=== PATIENT | male | born 1935 | race Caucasian/White ===

== ENCOUNTER 2019-04-13 13:45 | Inpatient (IN) | payer MEDICAID, MEDICARE, OTHER ==
[2019-04-13 14:12] LABS: CHLORIDE,CL 103 mmol/L (98-107); SODIUM,NA 142 mmol/L (136-145)
--- NOTE | 2019-04-13 14:37 | EDM.PDOC ---
ED HPI GENERAL MEDICAL PROBLEM - General Chief Complaint: General Stated Complaint: Stroke code Time Seen by Provider: 04/13/19 13:46 Source of Information: Reports: Patient, Family, RN History Limitations: Reports: Other (Fluids speech right-sided weakness) - History of Present Illness INITIAL COMMENTS - FREE TEXT/NARRATIVE: This is an 83-year-old male left-hand dominant who was transferred to the ER from the [facility] secondary to slow speech right-sided weakness at this time we went ahead and worked him up for stroke patient does have previous history of stroke. - Related Data Allergies Allergy/AdvReac Type Severity Reaction Status Date / Time tramadol HCl [From Ultram] Allergy Confusion Verified 02/25/18 00:28 Home Meds: Home Meds Acetaminophen [Tylenol] 650 mg PO Q4H PRN 06/12/14 [History] Atenolol 25 mg PO DAILY@1800 06/12/14 [History] Dextran 70/Hypromellose [Artificial Tears] 2 drop EYEBOTH DAILY PRN 06/12/14 [ History] Donepezil HCl [Aricept] 10 mg PO DAILY 06/12/14 [History] Isosorbide Mononitrate [Imdur] 60 mg PO DAILY 06/12/14 [History] Sertraline [Zoloft] 100 mg PO DAILY 06/12/14 [History] Acetaminophen [Tylenol Arthritis] 650 mg PO TID@04,12,18 02/25/18 [History] Levothyroxine Sodium [Synthroid] 25 mcg PO 0800 02/25/18 [History] Memantine HCl [Namenda] 5 mg PO BID 02/25/18 [History] Menthol/Methyl Salicylate [Analgesic [place]] 1 applic TOP BID 02/25/18 [History] Triamcinolone Acetonide [Triamcinolone Acetonide 0.1% Crm] 1 applic TOP ASDIRECTED PRN 02/25/18 [History] Bisacodyl 5 - 10 mg PO DAILY PRN 04/13/19 [History] Menthol [Beng[place]] 1 applic TP ASDIRECTED PRN 04/13/19 [History] Methyl Salicylate/Menthol [Muscle Rub] 85 gm TP DAILY@1800 04/13/19 [History] Methyl Salicylate/Menthol [Salonpas Patch] 1 each TP DAILY@0600 04/13/19 [ History] Aspirin [Halfprin] 81 mg PO DAILY #100 tab.ec 04/14/19 [Rx] Past Medical History Cardiovascular History: Reports: Heart Failure, High Cholesterol, Hypertension Respiratory History: Reports: COPD, SOB Gastrointestinal History: Reports: Chronic Diarrhea, Other (See Below) ( dysphagia) Genitourinary History: Reports: BPH, Urinary Incontinence, UTI, Recurrent, Other (See Below) (hematuria) Musculoskeletal History: Reports: Back Pain, Chronic, Osteoarthritis, Other ( See Below) (weakness, falls, difficulty ambulating, impingement syndrome right shoulder) Psychiatric History: Reports: Dementia, Depression - History Comment History Comment: History obtained by reviewing paperwork included in packet from [place] home. Social & Family History - Living Situation & Occupation Living situation: Reports: Extended Care Facility ED ROS GENERAL - Review of Systems Review Of Systems: See Below Constitutional: Reports: No Symptoms HEENT: Reports: No Symptoms Respiratory: Reports: No Symptoms Endocrine: Reports: No Symptoms GI/Abdominal: Reports: Abdominal Pain, Nausea : Reports: No Symptoms Musculoskeletal: Reports: No Symptoms Skin: Reports: No Symptoms Neurological: Reports: Headache Psychiatric: Reports: No Symptoms Hematologic/Lymphatic: Reports: No Symptoms ED EXAM, GENERAL - Physical Exam Exam: See Below Exam Limited By: No Limitations General Appearance: Alert, WD/WN, No Apparent Distress Ears: Normal External Exam, Normal Canal, Hearing Grossly Normal, Normal TMs Ear Exam: Bilateral Ear: Auricle Normal, Canal Normal, TM normal Nose: Normal Inspection, Normal Mucosa, No Blood Throat/Mouth: Normal Inspection, Normal Lips, Normal Teeth, Normal Gums, Normal Oropharynx, Normal Voice, No Airway Compromise Head: Atraumatic, Normocephalic Neck: Normal Inspection, Supple, Non-Tender, Full Range of Motion Respiratory/Chest: No Respiratory Distress, Lungs Clear, Normal Breath Sounds, No Accessory Muscle Use, Chest Non-Tender Cardiovascular: Normal Peripheral Pulses, Regular Rate, Rhythm, No Edema, No Gallop, No JVD, No Murmur, No Rub GI/Abdominal: Normal Bowel Sounds, Soft, Non-Tender, No Organomegaly, No Distention, No Abnormal Bruit, No Mass (Male) Exam: Deferred Extremities: Normal Inspection, Normal Range of Motion, Non-Tender, Normal Capillary Refill, No Pedal Edema Neurological: Alert, Oriented, CN II-XII Intact, Normal Cognition, Normal Gait, Normal Reflexes, No Motor/Sensory Deficits Psychiatric: Normal Affect, Normal Mood Skin Exam: Warm, Dry, Intact, Normal Color, No Rash Lymphatic: No Adenopathy Course - Vital Signs Last Recorded V/S: Last Vital Signs Temp 97.3 F 04/14/19 11:57 Pulse 64 04/14/19 11:57 Resp 19 04/14/19 08:00 BP 125/75 04/14/19 11:57 Pulse Ox 97 04/14/19 11:57 - Orders/Labs/Meds Orders: Active Orders 24 hr Category Date Time Status EKG Documentation Completion [RC] ASDIRECTED Care 04/13/19 13:53 Active Chest 1V Frontal [CR] Stat Exams 04/13/19 13:53 Taken Head wo Cont [CT] Routine Exams 04/13/19 13:53 Taken Medication Orders Acetaminophen (Tylenol) 650 mg PO Q4H PRN PRN Reason: Pain/Fever Acetaminophen (Tylenol Arthritis Pain) 650 mg PO TID@04,12,18 [facility] Last Admin: 04/14/19 11:53 Dose: 650 mg Admin: 04/14/19 04:24 Dose: 650 mg Artificial Tears (Liquitears 1.4% Ophth Soln) 0 ml EYEBOTH DAILY PRN PRN Reason: Dry Eyes Aspirin (Halfprin) 81 mg PO DAILY [facility] Atenolol (Tenormin) 25 mg PO DAILY@1800 [facility] Last Admin: 04/13/19 18:32 Dose: 25 mg Donepezil HCl (Aricept) 10 mg PO DAILY [facility] Last Admin: 04/14/19 07:46 Dose: 10 mg Isosorbide Mononitrate (Imdur) 60 mg PO DAILY [facility] Last Admin: 04/14/19 07:47 Dose: 60 mg Levothyroxine Sodium (Levothyroxine) 25 mcg PO 0800 [facility] Last Admin: 04/14/19 07:46 Dose: 25 mcg Lorazepam (Ativan) 1 mg IVPUSH Q6H PRN PRN Reason: Agitation Last Admin: 04/13/19 20:12 Dose: 1 mg Memantine (Namenda) 5 mg PO BID [facility] Last Admin: 04/14/19 07:46 Dose: 5 mg Admin: 04/13/19 18:32 Dose: 5 mg Methyl Salicylate (Icy Hot Cream) 0 gm TOP BID [facility] Last Admin: 04/14/19 07:47 Dose: 1 applic Admin: 04/13/19 18:33 Dose: 1 applic Methyl Salicylate (Icy Hot Cream) 0 gm TOP DAILY@1800 [facility] Last Admin: 04/13/19 20:13 Dose: 1 applic Miscellaneous Information (Remove Patch) 1 ea TRDERM QPM [facility] (Methyl Salicylate/Menthol [Salonpas Patch] 1 Each) 1 each TP DAILY@0600 [facility] Last Admin: 04/14/19 09:51 Dose: Sertraline HCl (Zoloft) 100 mg PO DAILY [facility] Last Admin: 04/14/19 07:46 Dose: 100 mg Sodium Chloride (Saline Flush) 10 ml FLUSH BID PRN PRN Reason: Keep Vein Open Last Admin: 04/14/19 07:50 Dose: 10 ml Triamcinolone Acetonide (Triamcinolone Acetonide 0.1% Crm) 0 gm TOP ASDIRECTED PRN PRN Reason: Rash Labs: Laboratory Tests 04/13/19 04/13/19 04/13/19 Range/Units 13:40 13:40 13:40 WBC 6.7 (4.0-10.2) K/uL RBC 4.52 (4.33-5.41) M/uL Hgb 14.1 (13.1-16.8) g/dL Hct 42.3 (39.0-49.0) % MCV 93.6 (84.0-98.0) fL MCH 31.2 (28.2-33.3) pg MCHC 33.3 (31.7-36.0) g/dL RDW 14.0 (11.2-14.1) % Plt Count 176 (150-350) K/uL Neut % (Auto) 60.2 (45.0-80.0) % Lymph % (Auto) 29.8 (10.0-50.0) % [place] % (Auto) 8.5 (2.0-14.0) % Eos % (Auto) 1.2 (0.0-5.0) % Baso % (Auto) 0.3 (0.0-2.0) % Neut # (Auto) 4.06 (1.40-7.00) K/uL Lymph # (Auto) 2.01 (0.50-3.50) K/uL [place] # (Auto) 0.57 (0.00-1.00) K/uL Eos # (Auto) 0.08 (0.00-0.50) K/uL Baso # (Auto) 0.02 (0.00-0.20) K/uL PT 10.7 (9.5-12.0) SEC INR 1.0 APTT 27.2 (21.0-31.3) SEC D-Dimer, Quantitative 589 H (0-400) ng/mL Sodium (136-145) mmol/L Potassium (3.5-5.1) mmol/L Chloride (98-107) mmol/L Carbon Dioxide (21.0-32.0) mmol/L BUN (7-18) mg/dL Creatinine (0.51-1.17) mg/dL Est Cr Clr Drug Dosing Estimated GFR (MDRD) mL/min Glucose (74-106) mg/dL Calcium (8.5-10.1) mg/dL Magnesium (1.8-2.4) mg/dL Total Bilirubin (0.2-1.0) mg/dL AST (15-37) U/L ALT (12-78) U/L Alkaline Phosphatase (46-116) IU/L Creatine Kinase (26-308) U/L Creatine Kinase Index (0.0-2.5) % CK-MB (CK-2) (0.00-3.60) ng/mL Troponin I (0.000-0.056) ng/mL NT-Pro-B Natriuret Pep (0-125) pg/mL Total Protein (6.4-8.2) g/dL Albumin (3.4-5.0) g/dL Prolactin (2.6-13.1) ng/mL 04/13/19 04/13/19 Range/Units 13:40 13:40 WBC (4.0-10.2) K/uL RBC (4.33-5.41) M/uL Hgb (13.1-16.8) g/dL Hct (39.0-49.0) % MCV (84.0-98.0) fL MCH (28.2-33.3) pg MCHC (31.7-36.0) g/dL RDW (11.2-14.1) % Plt Count (150-350) K/uL Neut % (Auto) (45.0-80.0) % Lymph % (Auto) (10.0-50.0) % [place] % (Auto) (2.0-14.0) % Eos % (Auto) (0.0-5.0) % Baso % (Auto) (0.0-2.0) % Neut # (Auto) (1.40-7.00) K/uL Lymph # (Auto) (0.50-3.50) K/uL [place] # (Auto) (0.00-1.00) K/uL Eos # (Auto) (0.00-0.50) K/uL Baso # (Auto) (0.00-0.20) K/uL PT (9.5-12.0) SEC INR APTT (21.0-31.3) SEC D-Dimer, Quantitative (0-400) ng/mL Sodium 142 (136-145) mmol/L Potassium 3.9 (3.5-5.1) mmol/L Chloride 103 (98-107) mmol/L Carbon Dioxide 29.4 (21.0-32.0) mmol/L BUN 24 H (7-18) mg/dL Creatinine 0.94 (0.51-1.17) mg/dL Est Cr Clr Drug Dosing TNP Estimated GFR (MDRD) > 60 mL/min Glucose 149 H (74-106) mg/dL Calcium 9.2 (8.5-10.1) mg/dL Magnesium 2.0 (1.8-2.4) mg/dL Total Bilirubin 0.6 (0.2-1.0) mg/dL AST 27 (15-37) U/L ALT 32 (12-78) U/L Alkaline Phosphatase 95 (46-116) IU/L Creatine Kinase 58 (26-308) U/L Creatine Kinase Index 2.8 H (0.0-2.5) % CK-MB (CK-2) 1.60 (0.00-3.60) ng/mL Troponin I 0.000 (0.000-0.056) ng/mL NT-Pro-B Natriuret Pep 1981 H (0-125) pg/mL Total Protein 8.3 H (6.4-8.2) g/dL Albumin 3.7 (3.4-5.0) g/dL Prolactin 4.7 (2.6-13.1) ng/mL Meds: Medications Generic Name Dose Route Start Last Admin Trade Name Freq PRN Reason Stop Dose Admin Acetaminophen 650 mg 04/13/19 17:29 Tylenol PO Q4H PRN Pain/Fever Acetaminophen 650 mg 04/14/19 04:00 04/14/19 11:53 Tylenol Arthritis Pain PO 650 mg TID@04,,18 [facility] Administration Artificial Tears 0 ml 04/13/19 17:29 Liquitears 1.4% Ophth Soln EYEBOTH DAILY PRN Dry Eyes Aspirin 81 mg 04/14/19 13:45 Halfprin PO DAILY [facility] Atenolol 25 mg 04/13/19 18:00 04/13/19 18:32 Tenormin PO 25 mg DAILY@1800 [facility] Administration Donepezil HCl 10 mg 04/14/19 08:00 04/14/19 07:46 Aricept PO 10 mg DAILY [facility] Administration Isosorbide Mononitrate 60 mg 04/14/19 08:00 04/14/19 07:47 Imdur PO 60 mg DAILY [facility] Administration Levothyroxine Sodium 25 mcg 04/14/19 08:00 04/14/19 07:46 Levothyroxine PO 25 mcg 0800 [facility] Administration Lorazepam 1 mg 04/13/19 18:15 04/13/19 20:12 Ativan IVPUSH 1 mg Q6H PRN Administration Agitation Memantine 5 mg 04/13/19 18:00 04/14/19 07:46 Namenda PO 5 mg BID [facility] Administration Methyl Salicylate 0 gm 04/13/19 18:00 04/14/19 07:47 Icy Hot Cream TOP 1 applic BID [facility] Administration Methyl Salicylate 0 gm 04/13/19 18:00 04/13/19 20:13 Icy Hot Cream TOP 1 applic DAILY@1800 [facility] Administration Miscellaneous Information 1 ea 04/14/19 18:00 Remove Patch TRDERM QPM [facility] (Methyl Salicylate/ 1 each 04/14/19 06:00 04/14/19 09:51 Menthol [Salonpas TP Not Given Patch] 1 Each) DAILY@0600 [facility] Sertraline HCl 100 mg 04/14/19 08:00 04/14/19 07:46 Zoloft PO 100 mg DAILY [facility] Administration Sodium Chloride 10 ml 04/14/19 06:29 04/14/19 07:50 Saline Flush FLUSH 10 ml BID PRN Administration Keep Vein Open Triamcinolone Acetonide 0 gm 04/13/19 17:29 Triamcinolone Acetonide 0.1% Crm TOP ASDIRECTED PRN Rash Discontinued Medications Generic Name Dose Route Start Last Admin Trade Name Starla PRN Reason Stop Dose Admin Acetaminophen 650 mg 04/13/19 18:00 Tylenol Arthritis Pain PO TID@04,,18 PRN PAIN Enoxaparin Sodium 40 mg 04/14/19 08:00 04/14/19 07:47 Lovenox SUBCUT 40 mg DAILY [facility] Administration Naproxen 220 mg 04/13/19 18:00 04/14/19 07:46 Naproxen Sodium PO 220 mg BID [facility] Administration Departure - Departure Time of Disposition: 14:36 Disposition: Admitted As Inpatient 65 Clinical Impression: Right sided weakness Stroke Qualifiers: CVA mechanism: other Qualified Code(s): I63.89 - Other cerebral infarction - Discharge Information - Problem List Review Problem List Initiated/Reviewed/Updated: Yes - My Orders Last 24 Hours: My Active Orders 04/13/19 13:53 EKG Documentation Completion [RC] ASDIRECTED Chest 1V Frontal [CR] Stat Head wo Cont [CT] Routine - Assessment/Plan Admission H&P: Please use this note as an admission H&P Last 24 Hours: My Active Orders 04/13/19 13:53 EKG Documentation Completion [RC] ASDIRECTED Chest 1V Frontal [CR] Stat Head wo Cont [CT] Routine Assessment:: Right side weakness; Stroke Plan: patient will be admitted as inpatient r/t history of stroke and right sided weakness. We will order PT and OT therapy and will keep close neurological monitoring on patient
[2019-04-13] MEDS ORDERED: Triamcinolone Acetonide 0.1% Crm 15 GM Tube TOP PRN (17:29)
[2019-04-13] MEDS ORDERED: Acetaminophen 325 MG Tab PO PRN (17:29)
[2019-04-13] MEDS ORDERED: Polyvinyl Alcohol 1.4% Ophth Soln 15 ML Bottle EYEBOTH PRN (17:29)
[2019-04-13] MEDS ORDERED: Acetaminophen 650 MG Tab.ER PO PRN (18:00)
[2019-04-13] MEDS ORDERED: Atenolol 25 MG Tab PO SCH (18:00)
[2019-04-13] MEDS ORDERED: Menthol/Methyl Salicylate 85 GM Tube TOP SCH (18:00)
[2019-04-13] MEDS ORDERED: LORazepam 2 MG/ML SDV IVPUSH PRN (18:15)
[2019-04-13] MEDS: Memantine 10 MG Tab PO SCH (18:32)
[2019-04-13] MEDS: Menthol/Methyl Salicylate 85 GM Tube TOP SCH (18:33)
[2019-04-14] MEDS: Acetaminophen 650 MG Tab.ER PO SCH ×2 (04:24→11:53)
[2019-04-14] MEDS ORDERED: (Methyl Salicylate/Menthol [Salonpas Patch] 1 EACH) TP SCH (06:00)
[2019-04-14] MEDS ORDERED: Sodium Chloride 0.9% 10 ML Syringe FLUSH PRN (06:29)
[2019-04-14] MEDS: Memantine 10 MG Tab PO SCH (07:46)
[2019-04-14] MEDS: Menthol/Methyl Salicylate 85 GM Tube TOP SCH (07:47)
[2019-04-14] MEDS ORDERED: Sertraline 50 MG Tab PO SCH (08:00)
[2019-04-14] MEDS ORDERED: Enoxaparin 40 MG/0.4 ML Syringe SUBCUT SCH (08:00)
[2019-04-14] MEDS ORDERED: Isosorbide Mononitrate 60 MG Tab.ER PO SCH (08:00)
[2019-04-14] MEDS ORDERED: Donepezil 10 MG Tab PO SCH (08:00)
[2019-04-14] MEDS ORDERED: Levothyroxine 25 MCG Tab PO SCH (08:00)
[2019-04-14 08:19] LABS: CHLORIDE,CL 105 mmol/L (98-107); SODIUM,NA 142 mmol/L (136-145)
[2019-04-14] MEDS ORDERED: Aspirin 81 MG Tab.EC PO SCH (13:45)
--- NOTE | 2019-04-14 13:48 | PCM.PN ---
- General Info Date of Service: 04/14/19 Functional Status: Reports: Pain Controlled - Review of Systems General: Reports: No Symptoms HEENT: Reports: No Symptoms, Other (poor dentition) Pulmonary: Reports: No Symptoms Cardiovascular: Reports: No Symptoms Gastrointestinal: Reports: Difficulty Swallowing (difficulty chewing) Genitourinary: Reports: No Symptoms Musculoskeletal: Reports: No Symptoms Skin: Reports: No Symptoms Neurological: Reports: Confusion, Trouble Speaking, Difficulty Walking, Weakness , Change in Speech (more slurring of words) Psychiatric: Reports: Confusion (from dementia) - Patient Data Vitals - Most Recent: Last Vital Signs Temp 97.3 F 04/14/19 11:57 Pulse 64 04/14/19 11:57 Resp 19 04/14/19 08:00 BP 125/75 04/14/19 11:57 Pulse Ox 97 04/14/19 11:57 Weight - Most Recent: 172 lb I&O - Last 24 Hours: Intake & Output 04/13/19 04/14/19 04/14/19 22:59 06:59 14:59 Intake Total 400 60 Balance 400 60 Lab Results Last 24 Hours: Laboratory Results - last 24 hr 04/13/19 04/13/19 04/13/19 Range/Units 13:40 13:40 13:40 WBC 6.7 (4.0-10.2) K/uL RBC 4.52 (4.33-5.41) M/uL Hgb 14.1 (13.1-16.8) g/dL Hct 42.3 (39.0-49.0) % MCV 93.6 (84.0-98.0) fL MCH 31.2 (28.2-33.3) pg MCHC 33.3 (31.7-36.0) g/dL RDW 14.0 (11.2-14.1) % Plt Count 176 (150-350) K/uL Neut % (Auto) 60.2 (45.0-80.0) % Lymph % (Auto) 29.8 (10.0-50.0) % [place] % (Auto) 8.5 (2.0-14.0) % Eos % (Auto) 1.2 (0.0-5.0) % Baso % (Auto) 0.3 (0.0-2.0) % Neut # (Auto) 4.06 (1.40-7.00) K/uL Lymph # (Auto) 2.01 (0.50-3.50) K/uL [place] # (Auto) 0.57 (0.00-1.00) K/uL Eos # (Auto) 0.08 (0.00-0.50) K/uL Baso # (Auto) 0.02 (0.00-0.20) K/uL PT 10.7 (9.5-12.0) SEC INR 1.0 APTT 27.2 (21.0-31.3) SEC D-Dimer, Quantitative 589 H (0-400) ng/mL Sodium (136-145) mmol/L Potassium (3.5-5.1) mmol/L Chloride (98-107) mmol/L Carbon Dioxide (21.0-32.0) mmol/L BUN (7-18) mg/dL Creatinine (0.51-1.17) mg/dL Est Cr Clr Drug Dosing Estimated GFR (MDRD) mL/min Glucose (74-106) mg/dL Calcium (8.5-10.1) mg/dL Magnesium (1.8-2.4) mg/dL Total Bilirubin (0.2-1.0) mg/dL AST (15-37) U/L ALT (12-78) U/L Alkaline Phosphatase (46-116) IU/L Creatine Kinase (26-308) U/L Creatine Kinase Index (0.0-2.5) % CK-MB (CK-2) (0.00-3.60) ng/mL Troponin I (0.000-0.056) ng/mL NT-Pro-B Natriuret Pep (0-125) pg/mL Total Protein (6.4-8.2) g/dL Albumin (3.4-5.0) g/dL Prolactin (2.6-13.1) ng/mL 04/13/19 04/13/19 04/14/19 Range/Units 13:40 13:40 07:55 WBC (4.0-10.2) K/uL RBC (4.33-5.41) M/uL Hgb (13.1-16.8) g/dL Hct (39.0-49.0) % MCV (84.0-98.0) fL MCH (28.2-33.3) pg MCHC (31.7-36.0) g/dL RDW (11.2-14.1) % Plt Count (150-350) K/uL Neut % (Auto) (45.0-80.0) % Lymph % (Auto) (10.0-50.0) % [place] % (Auto) (2.0-14.0) % Eos % (Auto) (0.0-5.0) % Baso % (Auto) (0.0-2.0) % Neut # (Auto) (1.40-7.00) K/uL Lymph # (Auto) (0.50-3.50) K/uL [place] # (Auto) (0.00-1.00) K/uL Eos # (Auto) (0.00-0.50) K/uL Baso # (Auto) (0.00-0.20) K/uL PT (9.5-12.0) SEC INR APTT (21.0-31.3) SEC D-Dimer, Quantitative (0-400) ng/mL Sodium 142 142 (136-145) mmol/L Potassium 3.9 3.8 (3.5-5.1) mmol/L Chloride 103 105 (98-107) mmol/L Carbon Dioxide 29.4 27.4 (21.0-32.0) mmol/L BUN 24 H 26 H (7-18) mg/dL Creatinine 0.94 0.95 (0.51-1.17) mg/dL Est Cr Clr Drug Dosing TNP 52.23 Estimated GFR (MDRD) > 60 > 60 mL/min Glucose 149 H 140 H (74-106) mg/dL Calcium 9.2 8.9 (8.5-10.1) mg/dL Magnesium 2.0 (1.8-2.4) mg/dL Total Bilirubin 0.6 (0.2-1.0) mg/dL AST 27 (15-37) U/L ALT 32 (12-78) U/L Alkaline Phosphatase 95 (46-116) IU/L Creatine Kinase 58 (26-308) U/L Creatine Kinase Index 2.8 H (0.0-2.5) % CK-MB (CK-2) 1.60 (0.00-3.60) ng/mL Troponin I 0.000 (0.000-0.056) ng/mL NT-Pro-B Natriuret Pep 1981 H (0-125) pg/mL Total Protein 8.3 H (6.4-8.2) g/dL Albumin 3.7 (3.4-5.0) g/dL Prolactin 4.7 (2.6-13.1) ng/mL 04/14/19 Range/Units 07:55 WBC 7.0 (4.0-10.2) K/uL RBC 4.03 L (4.33-5.41) M/uL Hgb 12.5 L D (13.1-16.8) g/dL Hct 37.8 L (39.0-49.0) % MCV 93.8 (84.0-98.0) fL MCH 31.0 (28.2-33.3) pg MCHC 33.1 (31.7-36.0) g/dL RDW 13.9 (11.2-14.1) % Plt Count 134 L (150-350) K/uL Neut % (Auto) 59.8 (45.0-80.0) % Lymph % (Auto) 28.5 (10.0-50.0) % [place] % (Auto) 10.3 (2.0-14.0) % Eos % (Auto) 1.1 (0.0-5.0) % Baso % (Auto) 0.3 (0.0-2.0) % Neut # (Auto) 4.19 (1.40-7.00) K/uL Lymph # (Auto) 2.00 (0.50-3.50) K/uL [place] # (Auto) 0.72 (0.00-1.00) K/uL Eos # (Auto) 0.08 (0.00-0.50) K/uL Baso # (Auto) 0.02 (0.00-0.20) K/uL PT (9.5-12.0) SEC INR APTT (21.0-31.3) SEC D-Dimer, Quantitative (0-400) ng/mL Sodium (136-145) mmol/L Potassium (3.5-5.1) mmol/L Chloride (98-107) mmol/L Carbon Dioxide (21.0-32.0) mmol/L BUN (7-18) mg/dL Creatinine (0.51-1.17) mg/dL Est Cr Clr Drug Dosing Estimated GFR (MDRD) mL/min Glucose (74-106) mg/dL Calcium (8.5-10.1) mg/dL Magnesium (1.8-2.4) mg/dL Total Bilirubin (0.2-1.0) mg/dL AST (15-37) U/L ALT (12-78) U/L Alkaline Phosphatase (46-116) IU/L Creatine Kinase (26-308) U/L Creatine Kinase Index (0.0-2.5) % CK-MB (CK-2) (0.00-3.60) ng/mL Troponin I (0.000-0.056) ng/mL NT-Pro-B Natriuret Pep (0-125) pg/mL Total Protein (6.4-8.2) g/dL Albumin (3.4-5.0) g/dL Prolactin (2.6-13.1) ng/mL Med Orders - Current: Current Medications Acetaminophen (Tylenol) 650 mg PO Q4H PRN PRN Reason: Pain/Fever Acetaminophen (Tylenol Arthritis Pain) 650 mg PO TID@04,12,18 [facility] Last Admin: 04/14/19 11:53 Dose: 650 mg Artificial Tears (Liquitears 1.4% Ophth Soln) 0 ml EYEBOTH DAILY PRN PRN Reason: Dry Eyes Aspirin (Halfprin) 81 mg PO DAILY [facility] Atenolol (Tenormin) 25 mg PO DAILY@1800 [facility] Last Admin: 04/13/19 18:32 Dose: 25 mg Donepezil HCl (Aricept) 10 mg PO DAILY [facility] Last Admin: 04/14/19 07:46 Dose: 10 mg Isosorbide Mononitrate (Imdur) 60 mg PO DAILY [facility] Last Admin: 04/14/19 07:47 Dose: 60 mg Levothyroxine Sodium (Levothyroxine) 25 mcg PO 0800 [facility] Last Admin: 04/14/19 07:46 Dose: 25 mcg Lorazepam (Ativan) 1 mg IVPUSH Q6H PRN PRN Reason: Agitation Last Admin: 04/13/19 20:12 Dose: 1 mg Memantine (Namenda) 5 mg PO BID [facility] Last Admin: 04/14/19 07:46 Dose: 5 mg Methyl Salicylate (Icy Hot Cream) 0 gm TOP BID [facility] Last Admin: 04/14/19 07:47 Dose: 1 applic Methyl Salicylate (Icy Hot Cream) 0 gm TOP DAILY@1800 [facility] Last Admin: 04/13/19 20:13 Dose: 1 applic Miscellaneous Information (Remove Patch) 1 ea TRDERM QPM [facility] (Methyl Salicylate/Menthol [Salonpas Patch] 1 Each) 1 each TP DAILY@0600 [facility] Last Admin: 04/14/19 09:51 Dose: Not Given Sertraline HCl (Zoloft) 100 mg PO DAILY [facility] Last Admin: 04/14/19 07:46 Dose: 100 mg Sodium Chloride (Saline Flush) 10 ml FLUSH BID PRN PRN Reason: Keep Vein Open Last Admin: 04/14/19 07:50 Dose: 10 ml Triamcinolone Acetonide (Triamcinolone Acetonide 0.1% Crm) 0 gm TOP ASDIRECTED PRN PRN Reason: Rash Discontinued Medications Acetaminophen (Tylenol Arthritis Pain) 650 mg PO TID@04,12,18 PRN PRN Reason: PAIN Enoxaparin Sodium (Lovenox) 40 mg SUBCUT DAILY [facility] Last Admin: 04/14/19 07:47 Dose: 40 mg Naproxen (Naproxen Sodium) 220 mg PO BID [facility] Last Admin: 04/14/19 07:46 Dose: 220 mg - Exam Quality Assessment: DVT Prophylaxis General: Alert, No Acute Distress HEENT: Mucous Membr. Moist/[place] Neck: Trachea Midline, No JVD Lungs: Clear to Auscultation, Normal Respiratory Effort Cardiovascular: Regular Rate, Regular Rhythm GI/Abdominal Exam: Soft, Non-Tender, No Distention (Male) Exam: Deferred Back Exam: Normal Inspection Extremities: Normal Inspection, Non-Tender Skin: Warm, Dry, Intact Neurological: Strength Equal Bilateral (in hands), Other (words a bit more slurred) Psy/Mental Status: Alert - Problem List & Annotations (1) Acute CVA (cerebrovascular accident) SNOMED Code(s): 431547700, 221155578 Code(s): I63.9 - CEREBRAL INFARCTION, UNSPECIFIED Status: Acute Priority : High Current Visit: Yes (2) 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) SNOMED Code(s): 3392692, 426529870 Code(s): I63.9 - CEREBRAL INFARCTION, UNSPECIFIED; R47.1 - DYSARTHRIA AND ANARTHRIA Status: Acute Current Visit: Yes (3) Alzheimer's dementia with behavioral disturbance SNOMED Code(s): 3663440995694 Code(s): G30.9 - ALZHEIMER'S DISEASE, UNSPECIFIED; F02.81 - DEMENTIA IN OTH DISEASES CLASSD ELSWHR W BEHAVIORAL DISTURB Status: Acute Priority: Medium Current Visit: Yes Qualifiers: Alzheimer's disease onset: late-onset Qualified Code(s): G30.1 - Alzheimer' s disease with late onset; F02.81 - Dementia in other diseases classified elsewhere with behavioral disturbance (4) CHF, Congestive heart failure SNOMED Code(s): 77816859 Code(s): I50.9 - HEART FAILURE, UNSPECIFIED Status: Acute Priority: Medium Current Visit: No Onset Date: 06/13/14 (5) COPD, Mild chronic obstructive pulmonary disease SNOMED Code(s): 326625464 Code(s): J44.9 - CHRONIC OBSTRUCTIVE PULMONARY DISEASE, UNSPECIFIED Status : Acute Priority: Medium Current Visit: No (6) HTN, Benign hypertension SNOMED Code(s): 99552514 Code(s): I10 - ESSENTIAL (PRIMARY) HYPERTENSION Status: Acute Priority: Medium Current Visit: No (7) Osteoarthritis SNOMED Code(s): 761675854 Code(s): M19.90 - UNSPECIFIED OSTEOARTHRITIS, UNSPECIFIED SITE Status: Acute Priority: Medium Current Visit: No - Problem List Review Problem List Initiated/Reviewed/Updated: Yes - My Orders Last 24 Hours: My Active Orders 04/14/19 06:29 Sodium Chloride 0.9% [Saline Flush] 10 ml FLUSH BID PRN 04/14/19 11:00 Swallowing Function w Video [CR] Routine 04/14/19 13:39 Ready for Discharge [RC] PER UNIT ROUTINE 04/14/19 13:40 Discontinue Saline Lock [Peripheral IV Discontinue] [OM.PC] Routine 04/14/19 13:45 Aspirin [Halfprin] 81 mg PO DAILY 04/14/19 18:00 Remove Patch 1 ea TRDERM QPM 04/14/19 Dinner Pureed Diet [DIET] - Plan Plan:: 04/14/19 Christy Schmitt MD He still has some slurred speech. Just had video-swallow. Son here and long discussion on goals of treatment. Will start aspirin. Diet changed per recommendations. May be discharged back to [facility] today.
--- NOTE | 2019-04-14 14:00 | PCM.DCSUM1 ---
Discharge Summary - Hospital Course Diagnosis: Stroke: Yes Modified Carin Scale: Mod.Sev.Disability ;Unable to Walk/Attend Bodily Needs W/ O Assistance Modified [place] Scale Score: 4 - Discharge Data Discharge Date: 04/14/19 Discharge Disposition: DC/Tfer to SNF 03 Condition: Fair - Referral to Home Health Primary Care Physician: Fortino Sloan MD - Discharge Diagnosis/Problem(s) (1) Acute CVA (cerebrovascular accident) SNOMED Code(s): 464697872, 317481042 ICD Code: I63.9 - CEREBRAL INFARCTION, UNSPECIFIED Status: Acute Priority : High Current Visit: Yes (2) 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) SNOMED Code(s): 4668820, 893266016 ICD Code: I63.9 - CEREBRAL INFARCTION, UNSPECIFIED; R47.1 - DYSARTHRIA AND ANARTHRIA Status: Acute Current Visit: Yes (3) Alzheimer's dementia with behavioral disturbance SNOMED Code(s): 6514877521271 ICD Code: G30.9 - ALZHEIMER'S DISEASE, UNSPECIFIED; F02.81 - DEMENTIA IN OTH DISEASES CLASSD ELSWHR W BEHAVIORAL DISTURB Status: Acute Priority: Medium Current Visit: Yes Qualifiers: Alzheimer's disease onset: late-onset Qualified Code(s): G30.1 - Alzheimer' s disease with late onset; F02.81 - Dementia in other diseases classified elsewhere with behavioral disturbance (4) CHF, Congestive heart failure SNOMED Code(s): 64417061 ICD Code: I50.9 - HEART FAILURE, UNSPECIFIED Status: Acute Priority: Medium Current Visit: No Onset Date: 06/13/14 (5) COPD, Mild chronic obstructive pulmonary disease SNOMED Code(s): 413991819 ICD Code: J44.9 - CHRONIC OBSTRUCTIVE PULMONARY DISEASE, UNSPECIFIED Status : Acute Priority: Medium Current Visit: No (6) HTN, Benign hypertension SNOMED Code(s): 12214082 ICD Code: I10 - ESSENTIAL (PRIMARY) HYPERTENSION Status: Acute Priority: Medium Current Visit: No (7) Osteoarthritis SNOMED Code(s): 045505632 ICD Code: M19.90 - UNSPECIFIED OSTEOARTHRITIS, UNSPECIFIED SITE Status: Acute Priority: Medium Current Visit: No - Patient Summary/Data Consults: Consultations 04/13/19 15:33 Consult to Case Management/Ux Information Architect [CONS] Routine 04/13/19 15:40 PT Evaluation and Treatment [CONS] Routine 04/13/19 15:41 Consult to Speech Language Pathology [DRIVER SUPERVISOR Evaluation and Treatment] [CONS] Routine OT Evaluation and Treatment [CONS] Routine - Patient Instructions Diet: Pureed Activity: As Tolerated Driving: Do Not Drive Showering/Bathing: May Shower Other/Special Instructions: PT-OT referral to evaluate and treat, Dx Acute CVA, Speech therapy referral to evaluate and treat, Dx dementia and acute CVA - Discharge Plan *PRESCRIPTION DRUG MONITORING PROGRAM REVIEWED*: Not Applicable *COPY OF PRESCRIPTION DRUG MONITORING REPORT IN PATIENT SAL: Not Applicable Prescriptions/Med Rec: Aspirin [Halfprin] 81 mg PO DAILY #100 tab.ec Home Medications: Home Meds Acetaminophen [Tylenol] 650 mg PO Q4H PRN 06/12/14 [History] Atenolol 25 mg PO DAILY@1800 06/12/14 [History] Dextran 70/Hypromellose [Artificial Tears] 2 drop EYEBOTH DAILY PRN 06/12/14 [ History] Donepezil HCl [Aricept] 10 mg PO DAILY 06/12/14 [History] Isosorbide Mononitrate [Imdur] 60 mg PO DAILY 06/12/14 [History] Sertraline [Zoloft] 100 mg PO DAILY 06/12/14 [History] Acetaminophen [Tylenol Arthritis] 650 mg PO TID@04,12,18 02/25/18 [History] Levothyroxine Sodium [Synthroid] 25 mcg PO 0800 02/25/18 [History] Memantine HCl [Namenda] 5 mg PO BID 02/25/18 [History] Menthol/Methyl Salicylate [Analgesic [place]] 1 applic TOP BID 02/25/18 [History] Triamcinolone Acetonide [Triamcinolone Acetonide 0.1% Crm] 1 applic TOP ASDIRECTED PRN 02/25/18 [History] Bisacodyl 5 - 10 mg PO DAILY PRN 04/13/19 [History] Menthol [Bengay] 1 applic TP ASDIRECTED PRN 04/13/19 [History] Methyl Salicylate/Menthol [Muscle Rub] 85 gm TP DAILY@1800 04/13/19 [History] Methyl Salicylate/Menthol [Salonpas Patch] 1 each TP DAILY@0600 04/13/19 [ History] Aspirin [Halfprin] 81 mg PO DAILY #100 tab.ec 04/14/19 [Rx] Oxygen Therapy Mode: Room Air Forms: ED Department Discharge Referrals: Fortino Sloan MD [Primary Care Provider] - - Discharge Summary/Plan Comment DC Time >30 min.: No - Patient Data Vitals - Most Recent: Last Vital Signs Temp 97.3 F 04/14/19 11:57 Pulse 64 04/14/19 11:57 Resp 19 04/14/19 08:00 BP 125/75 04/14/19 11:57 Pulse Ox 97 04/14/19 11:57 Weight - Most Recent: 172 lb I&O - Last 24 hours: Intake & Output 04/13/19 04/14/19 04/14/19 22:59 06:59 14:59 Intake Total 400 130 Balance 400 130 Lab Results - Last 24 hrs: Laboratory Results - last 24 hr 04/13/19 04/13/19 04/13/19 Range/Units 13:40 13:40 13:40 WBC (4.0-10.2) K/uL RBC (4.33-5.41) M/uL Hgb (13.1-16.8) g/dL Hct (39.0-49.0) % MCV (84.0-98.0) fL MCH (28.2-33.3) pg MCHC (31.7-36.0) g/dL RDW (11.2-14.1) % Plt Count (150-350) K/uL Neut % (Auto) (45.0-80.0) % Lymph % (Auto) (10.0-50.0) % [place] % (Auto) (2.0-14.0) % Eos % (Auto) (0.0-5.0) % Baso % (Auto) (0.0-2.0) % Neut # (Auto) (1.40-7.00) K/uL Lymph # (Auto) (0.50-3.50) K/uL [place] # (Auto) (0.00-1.00) K/uL Eos # (Auto) (0.00-0.50) K/uL Baso # (Auto) (0.00-0.20) K/uL PT 10.7 (9.5-12.0) SEC INR 1.0 APTT 27.2 (21.0-31.3) SEC D-Dimer, Quantitative 589 H (0-400) ng/mL Sodium 142 (136-145) mmol/L Potassium 3.9 (3.5-5.1) mmol/L Chloride 103 (98-107) mmol/L Carbon Dioxide 29.4 (21.0-32.0) mmol/L BUN 24 H (7-18) mg/dL Creatinine 0.94 (0.51-1.17) mg/dL Est Cr Clr Drug Dosing TNP Estimated GFR (MDRD) > 60 mL/min Glucose 149 H (74-106) mg/dL Calcium 9.2 (8.5-10.1) mg/dL Magnesium 2.0 (1.8-2.4) mg/dL Total Bilirubin 0.6 (0.2-1.0) mg/dL AST 27 (15-37) U/L ALT 32 (12-78) U/L Alkaline Phosphatase 95 (46-116) IU/L Creatine Kinase 58 (26-308) U/L Creatine Kinase Index 2.8 H (0.0-2.5) % CK-MB (CK-2) 1.60 (0.00-3.60) ng/mL Troponin I 0.000 (0.000-0.056) ng/mL NT-Pro-B Natriuret Pep 1981 H (0-125) pg/mL Total Protein 8.3 H (6.4-8.2) g/dL Albumin 3.7 (3.4-5.0) g/dL Prolactin (2.6-13.1) ng/mL 04/13/19 04/14/19 04/14/19 Range/Units 13:40 07:55 07:55 WBC 7.0 (4.0-10.2) K/uL RBC 4.03 L (4.33-5.41) M/uL Hgb 12.5 L D (13.1-16.8) g/dL Hct 37.8 L (39.0-49.0) % MCV 93.8 (84.0-98.0) fL MCH 31.0 (28.2-33.3) pg MCHC 33.1 (31.7-36.0) g/dL RDW 13.9 (11.2-14.1) % Plt Count 134 L (150-350) K/uL Neut % (Auto) 59.8 (45.0-80.0) % Lymph % (Auto) 28.5 (10.0-50.0) % [place] % (Auto) 10.3 (2.0-14.0) % Eos % (Auto) 1.1 (0.0-5.0) % Baso % (Auto) 0.3 (0.0-2.0) % Neut # (Auto) 4.19 (1.40-7.00) K/uL Lymph # (Auto) 2.00 (0.50-3.50) K/uL [place] # (Auto) 0.72 (0.00-1.00) K/uL Eos # (Auto) 0.08 (0.00-0.50) K/uL Baso # (Auto) 0.02 (0.00-0.20) K/uL PT (9.5-12.0) SEC INR APTT (21.0-31.3) SEC D-Dimer, Quantitative (0-400) ng/mL Sodium 142 (136-145) mmol/L Potassium 3.8 (3.5-5.1) mmol/L Chloride 105 (98-107) mmol/L Carbon Dioxide 27.4 (21.0-32.0) mmol/L BUN 26 H (7-18) mg/dL Creatinine 0.95 (0.51-1.17) mg/dL Est Cr Clr Drug Dosing 52.23 Estimated GFR (MDRD) > 60 mL/min Glucose 140 H (74-106) mg/dL Calcium 8.9 (8.5-10.1) mg/dL Magnesium (1.8-2.4) mg/dL Total Bilirubin (0.2-1.0) mg/dL AST (15-37) U/L ALT (12-78) U/L Alkaline Phosphatase (46-116) IU/L Creatine Kinase (26-308) U/L Creatine Kinase Index (0.0-2.5) % CK-MB (CK-2) (0.00-3.60) ng/mL Troponin I (0.000-0.056) ng/mL NT-Pro-B Natriuret Pep (0-125) pg/mL Total Protein (6.4-8.2) g/dL Albumin (3.4-5.0) g/dL Prolactin 4.7 (2.6-13.1) ng/mL Med Orders - Current: Current Medications Acetaminophen (Tylenol) 650 mg PO Q4H PRN PRN Reason: Pain/Fever Acetaminophen (Tylenol Arthritis Pain) 650 mg PO TID@04,,18 [facility] Last Admin: 04/14/19 11:53 Dose: 650 mg Artificial Tears (Liquitears 1.4% Ophth Soln) 0 ml EYEBOTH DAILY PRN PRN Reason: Dry Eyes Aspirin (Halfprin) 81 mg PO DAILY [facility] Last Admin: 04/14/19 13:51 Dose: 81 mg Atenolol (Tenormin) 25 mg PO DAILY@1800 [facility] Last Admin: 04/13/19 18:32 Dose: 25 mg Donepezil HCl (Aricept) 10 mg PO DAILY [facility] Last Admin: 04/14/19 07:46 Dose: 10 mg Isosorbide Mononitrate (Imdur) 60 mg PO DAILY [facility] Last Admin: 04/14/19 07:47 Dose: 60 mg Levothyroxine Sodium (Levothyroxine) 25 mcg PO 0800 [facility] Last Admin: 04/14/19 07:46 Dose: 25 mcg Lorazepam (Ativan) 1 mg IVPUSH Q6H PRN PRN Reason: Agitation Last Admin: 04/13/19 20:12 Dose: 1 mg Memantine (Namenda) 5 mg PO BID [facility] Last Admin: 04/14/19 07:46 Dose: 5 mg Methyl Salicylate (Icy Hot Cream) 0 gm TOP BID [facility] Last Admin: 04/14/19 07:47 Dose: 1 applic Methyl Salicylate (Icy Hot Cream) 0 gm TOP DAILY@1800 [facility] Last Admin: 04/13/19 20:13 Dose: 1 applic Miscellaneous Information (Remove Patch) 1 ea TRDERM QPM [facility] (Methyl Salicylate/Menthol [Salonpas Patch] 1 Each) 1 each TP DAILY@0600 [facility] Last Admin: 04/14/19 09:51 Dose: Not Given Sertraline HCl (Zoloft) 100 mg PO DAILY [facility] Last Admin: 04/14/19 07:46 Dose: 100 mg Sodium Chloride (Saline Flush) 10 ml FLUSH BID PRN PRN Reason: Keep Vein Open Last Admin: 04/14/19 07:50 Dose: 10 ml Triamcinolone Acetonide (Triamcinolone Acetonide 0.1% Crm) 0 gm TOP ASDIRECTED PRN PRN Reason: Rash Discontinued Medications Acetaminophen (Tylenol Arthritis Pain) 650 mg PO TID@04,12,18 PRN PRN Reason: PAIN Enoxaparin Sodium (Lovenox) 40 mg SUBCUT DAILY [facility] Last Admin: 04/14/19 07:47 Dose: 40 mg Naproxen (Naproxen Sodium) 220 mg PO BID [facility] Last Admin: 04/14/19 07:46 Dose: 220 mg
[2019-04-14] MEDS ORDERED: REMOVE SALONPAS TRDERM SCH (18:00)
== END 2019-04-14 14:10 | DRG 65 ==
LOC: LL.ED 13:45 → LL.MS 14:36
PROVIDERS: ADMIT Family Medicine; ATTEND Family Medicine
DX: I63.9 Cerebral infarction, unspecified (principal); I63.89 Other cerebral infarction; F02.81 Dementia in other diseases classified elsewhere, unspecified severity, with behavioral disturbance; G81.93 Hemiplegia, unspecified affecting right nondominant side; R53.1 Weakness; R47.1 Dysarthria and anarthria; I11.0 Hypertensive heart disease with heart failure; J44.9 Chronic obstructive pulmonary disease, unspecified; E78.00 Pure hypercholesterolemia, unspecified; F03.90 Unspecified dementia, unspecified severity, without behavioral disturbance, psychotic disturbance, mood disturbance, and anxiety; N40.1 Benign prostatic hyperplasia with lower urinary tract symptoms; R32 Unspecified urinary incontinence; Z79.82 Long term (current) use of aspirin; Z79.899 Other long term (current) drug therapy; G30.1 Alzheimer's disease with late onset; N40.0 Benign prostatic hyperplasia without lower urinary tract symptoms; R29.716 NIHSS score 16; Z88.5 Allergy status to narcotic agent; Z87.440 Personal history of urinary (tract) infections
CPT/HCPCS: 36000; 36415; 70450; 71045; 74230; 80048; 80053; 82550; 82553; 83735; 83880; 84146; 84484; 85025; 85379; 85610; 85730; 92526-GN; 92611-GN; 93005; 99291-25; A9270-GY; J1650; J2060

== ENCOUNTER 2020-06-12 02:30 | Emergency (ER) | payer MEDICAID ==
[2020-06-12] MEDS ORDERED: Sodium Chloride 0.9% 1,000 ML IV ONE ×2 (03:30→03:43)
[2020-06-12] MEDS ORDERED: Piperacillin/Tazobactam 3.375 GM in Sodium Chloride 0.9% 100 ML IV ONE (03:47)
[2020-06-12 03:50] LABS: CHLORIDE,CL 103 mmol/L (98-107); SODIUM,NA 139 mmol/L (136-145)
[2020-06-12] MEDS ORDERED: Norepinephrine 4 MG/4 ML SDV ONE (03:59)
[2020-06-12] MEDS ORDERED: Norepinephrine 4 MG in Dextrose 5% in Water 246 ML IV SCH ×2 (04:00)
[2020-06-12] MEDS ORDERED: Dextrose 5% in Water 250 ML ONE (04:02)
--- NOTE | 2020-06-12 04:21 | EDM.PDOC ---
ED HPI GENERAL MEDICAL PROBLEM - General Chief Complaint: Possible Sepsis Stated Complaint: UTI, fever, tachycardia, hypotension Time Seen by Provider: 06/12/20 02:45 Source of Information: Reports: EMS, [facility] Records History Limitations: Reports: Altered Mental Status - History of Present Illness INITIAL COMMENTS - FREE TEXT/NARRATIVE: Pt sent to ER from [facility] for probable sepsis Pt sent for fever, hypotension, tachycardia and lethargy Pt treated with Rocephin IM for UTI earlier today Pt has hx/o dementia and hypertension See lab from earlier today Onset: Today, Sudden Context: Reports: Other (Sepsis) Associated Symptoms: Reports: Other (Hypotension, tachycardia, lethargy) Treatments SHED WORKERS SUPERVISOR: Reports: IV/IO, Oxygen - Related Data Allergies Allergy/AdvReac Type Severity Reaction Status Date / Time Ayszxcz-Qgb-Ccs Reductase Allergy Body Aches Verified 04/14/19 14:15 Inhibitor tramadol HCl [From Ultram] Allergy Confusion Verified 02/25/18 00:28 Home Meds: Home Meds Acetaminophen [Tylenol] 650 mg PO Q4H PRN 06/12/14 [History] Dextran 70/Hypromellose [Artificial Tears] 2 drop EYEBOTH DAILY PRN 06/12/14 [History] Donepezil HCl [Aricept] 10 mg PO DAILY 06/12/14 [History] Isosorbide Mononitrate [Imdur] 60 mg PO DAILY 06/12/14 [History] Sertraline [Zoloft] 100 mg PO DAILY 06/12/14 [History] atenoloL [Atenolol] 25 mg PO DAILY@1800 06/12/14 [History] Acetaminophen [Tylenol Arthritis] 650 mg PO TID@04,12,18 02/25/18 [History] Levothyroxine Sodium [Synthroid] 25 mcg PO 0800 02/25/18 [History] Memantine HCl [Namenda] 5 mg PO BID 02/25/18 [History] Menthol/Methyl Salicylate [Analgesic [place]] 1 applic TOP BID 02/25/18 [History] Triamcinolone Acetonide [Triamcinolone Acetonide 0.1% Crm] 1 applic TOP ASDIRECTED PRN 02/25/18 [History] Menthol [Bengay] 1 applic TP ASDIRECTED PRN 04/13/19 [History] bisacodyL [Bisacodyl] 5 - 10 mg PO DAILY PRN 04/13/19 [History] Aspirin [Halfprin] 81 mg PO DAILY #100 tab.ec 04/14/19 [Rx] Acetaminophen 650 mg RC Q4HR PRN 06/12/20 [History] Cholecalciferol (Vitamin D3) [Vitamin D3] 5,000 unit PO DAILY 06/12/20 [History] cefTRIAXone [Rocephin] 1 gm IM DAILY@1800 06/12/20 [History] lisinopriL [Lisinopril] 5 mg PO DAILY@08 06/12/20 [History] Past Medical History HEENT History: Reports: Other (See Below) Other HEENT History: edentulous Cardiovascular History: Reports: Heart Failure, High Cholesterol, Hypertension Respiratory History: Reports: COPD, SOB Gastrointestinal History: Reports: Chronic Diarrhea Genitourinary History: Reports: BPH, Urinary Incontinence, UTI, Recurrent Musculoskeletal History: Reports: Back Pain, Chronic, Osteoarthritis Neurological History: Reports: Alzheimers Disease Psychiatric History: Reports: Dementia, Depression - History Comment History Comment: History obtained by reviewing paperwork included in packet from [place]. Social & Family History - Tobacco Use Tobacco Use Status *Q: Unknown Ever Used Tobacco - Living Situation & Occupation Living situation: Reports: Extended Care Facility ED ROS GENERAL - Review of Systems Review Of Systems: See Below Constitutional: Reports: Other (lethargy) Respiratory: Reports: Other (tachypnea) Cardiovascular: Reports: Other (tachycardia, hypotension) GI/Abdominal: Reports: No Symptoms : Reports: Other (UTI) Musculoskeletal: Reports: No Symptoms Neurological: Reports: Confusion ED EXAM, SEPSIS - Physical Exam Exam: See Below Exam Limited By: Altered Mental Status General Appearance: Moderate Distress Throat/Mouth: Normal Oropharynx Head: Atraumatic Neck: Supple Respiratory/Chest: Decreased Breath Sounds Cardiovascular: Tachycardia GI/Abdominal Exam: Soft Extremities: Normal Inspection Neurological: Slow to Respond Course - Vital Signs Last Recorded V/S: Last Vital Signs Temp 100.5 F 06/12/20 02:58 Pulse 103 H 06/12/20 03:17 Resp 31 H 06/12/20 03:17 BP 72/46 L 06/12/20 03:17 Pulse Ox 100 06/12/20 03:17 - Orders/Labs/Meds Orders: Active Orders 24 hr Category Date Time Status EKG Documentation Completion [RC] ASDIRECTED Care 06/12/20 03:04 Active Insert Guadarrama Catheter [Insert Urinary Catheter] [OM.PC] Care 06/12/20 03:00 Ordered Q24H Urinary Catheter Assessment [RC] ASDIRECTED Care 06/12/20 03:46 Active CXR [Chest 1V Frontal] [CR] Stat Exams 06/12/20 02:47 Taken CULTURE BLOOD [BC] Stat Lab 06/12/20 03:05 Received CULTURE BLOOD [BC] Stat Lab 06/12/20 03:22 Received Norepinephrine [Levophed] 4 mg Med 06/12/20 04:00 Active Dextrose 5% in Water 246 ml IV TITRATE Piperacillin/Tazobactam [Zosyn] 3.375 gm Med 06/12/20 03:47 Active Sodium Chloride 0.9% [Normal Saline] 100 ml IV ONETIME Sodium Chloride 0.9% [Normal Saline] 1,000 ml Med 06/12/20 03:30 Active IV .BOLUS Sodium Chloride 0.9% [Normal Saline] 1,000 ml Med 06/12/20 03:43 Active IV .BOLUS Blood Culture x2 Reflex Set [OM.PC] Stat Oth 06/12/20 02:47 Ordered Medication Orders Sodium Chloride (Normal Saline) 1,000 mls @ 1,000 mls/hr IV .BOLUS ONE Stop: 06/12/20 04:29 Last Admin: 06/12/20 03:42 Dose: 1,000 mls/hr Documented by: SANA Sodium Chloride (Normal Saline) 1,000 mls @ 1,000 mls/hr IV .BOLUS ONE Stop: 06/12/20 04:42 Piperacillin Sod/Tazobactam (Sod 3.375 gm/ Sodium Chloride) 100 mls @ 200 mls/hr IV ONETIME ONE Stop: 06/12/20 04:16 Last Admin: 06/12/20 03:52 Dose: 200 mls/hr Documented by: SANA Norepinephrine Bitartrate 4 mg (/ Dextrose/Water) 250 mls @ 7.5 mls/hr IV TITRATE NOELLE; Protocol Last Admin: 06/12/20 04:08 Dose: 2 mcg/min, 7.5 mls/hr Documented by: SANA Labs: Laboratory Tests 06/12/20 06/12/20 06/12/20 Range/Units 02:47 03:05 03:05 WBC 21.3 H (4.0-10.2) K/uL RBC 4.32 L (4.33-5.41) M/uL Hgb 13.5 (13.1-16.8) g/dL Hct 40.9 (39.0-49.0) % MCV 94.7 (84.0-98.0) fL MCH 31.3 (28.2-33.3) pg MCHC 33.0 (31.7-36.0) g/dL RDW 13.8 (11.2-14.1) % Plt Count 101 L (150-350) K/uL Neut % (Auto) 94.8 H (45.0-80.0) % Lymph % (Auto) 3.1 L (10.0-50.0) % [place] % (Auto) 2.1 (2.0-14.0) % Eos % (Auto) 0.0 (0.0-5.0) % Baso % (Auto) 0.0 (0.0-2.0) % Neut # (Auto) 20.18 H (1.40-7.00) K/uL Lymph # (Auto) 0.66 (0.50-3.50) K/uL [place] # (Auto) 0.45 (0.00-1.00) K/uL Eos # (Auto) 0.00 (0.00-0.50) K/uL Baso # (Auto) 0.00 (0.00-0.20) K/uL Sodium 139 (136-145) mmol/L Potassium 3.4 L (3.5-5.1) mmol/L Chloride 103 (98-107) mmol/L Carbon Dioxide 18.9 L (21.0-32.0) mmol/L BUN 31 H (7-18) mg/dL Creatinine 2.50 H D (0.51-1.17) mg/dL Est Cr Clr Drug Dosing TNP Estimated GFR (MDRD) 25 mL/min Glucose 277 H (74-106) mg/dL Lactic Acid (0.4-2.0) mmol/L Calcium 8.7 (8.5-10.1) mg/dL Total Bilirubin 0.6 (0.2-1.0) mg/dL AST 29 (15-37) U/L ALT 30 (12-78) U/L Alkaline Phosphatase 110 (46-116) IU/L Total Protein 7.9 (6.4-8.2) g/dL Albumin 3.1 L (3.4-5.0) g/dL Specimen Type Urincath Urine Color Brown Urine Appearance Turbid Urine pH 5.0 (5.0-9.0) Ur Specific Daisy 1.025 (1.005-1.030) Urine Protein 100 H (NEGATIVE) mg/dL Urine Glucose (UA) Negative (NEGATIVE) mg/dL Urine Ketones 15 H (NEGATIVE) mg/dL Urine Occult Blood Large H (NEGATIVE) Urine Nitrite Positive H (NEGATIVE) Urine Bilirubin Moderate H (NEGATIVE) Urine Urobilinogen 0.2 (0.2-1.0) E.U./dL Ur Leukocyte Esterase Small H (NEGATIVE) Urine RBC >100 H /HPF Urine WBC 40-50 H /HPF Ur Epithelial Cells Few /LPF Amorphous Sediment Many H (0/HPF) /HPF Urine Bacteria Moderate H (NONE TO FEW) /HPF 06/12/20 Range/Units 03:05 WBC (4.0-10.2) K/uL RBC (4.33-5.41) M/uL Hgb (13.1-16.8) g/dL Hct (39.0-49.0) % MCV (84.0-98.0) fL MCH (28.2-33.3) pg MCHC (31.7-36.0) g/dL RDW (11.2-14.1) % Plt Count (150-350) K/uL Neut % (Auto) (45.0-80.0) % Lymph % (Auto) (10.0-50.0) % [place] % (Auto) (2.0-14.0) % Eos % (Auto) (0.0-5.0) % Baso % (Auto) (0.0-2.0) % Neut # (Auto) (1.40-7.00) K/uL Lymph # (Auto) (0.50-3.50) K/uL [place] # (Auto) (0.00-1.00) K/uL Eos # (Auto) (0.00-0.50) K/uL Baso # (Auto) (0.00-0.20) K/uL Sodium (136-145) mmol/L Potassium (3.5-5.1) mmol/L Chloride (98-107) mmol/L Carbon Dioxide (21.0-32.0) mmol/L BUN (7-18) mg/dL Creatinine (0.51-1.17) mg/dL Est Cr Clr Drug Dosing Estimated GFR (MDRD) mL/min Glucose (74-106) mg/dL Lactic Acid 6.2 H (0.4-2.0) mmol/L Calcium (8.5-10.1) mg/dL Total Bilirubin (0.2-1.0) mg/dL AST (15-37) U/L ALT (12-78) U/L Alkaline Phosphatase (46-116) IU/L Total Protein (6.4-8.2) g/dL Albumin (3.4-5.0) g/dL Specimen Type Urine Color Urine Appearance Urine pH (5.0-9.0) Ur Specific Daisy (1.005-1.030) Urine Protein (NEGATIVE) mg/dL Urine Glucose (UA) (NEGATIVE) mg/dL Urine Ketones (NEGATIVE) mg/dL Urine Occult Blood (NEGATIVE) Urine Nitrite (NEGATIVE) Urine Bilirubin (NEGATIVE) Urine Urobilinogen (0.2-1.0) E.U./dL Ur Leukocyte Esterase (NEGATIVE) Urine RBC /HPF Urine WBC /HPF Ur Epithelial Cells /LPF Amorphous Sediment (0/HPF) /HPF Urine Bacteria (NONE TO FEW) /HPF Meds: Medications Generic Name Dose Route Start Last Admin Trade Name Freq PRN Reason Stop Dose Admin Sodium Chloride 1,000 mls @ 1,000 mls/hr 06/12/20 03:30 06/12/20 03:42 Normal Saline IV 06/12/20 04:29 1,000 mls/hr .BOLUS ONE Administration Sodium Chloride 1,000 mls @ 1,000 mls/hr 06/12/20 03:43 Normal Saline IV 06/12/20 04:42 .BOLUS ONE Piperacillin Sod/Tazobactam 100 mls @ 200 mls/hr 06/12/20 03:47 06/12/20 03:52 Sod 3.375 gm/ Sodium Chloride IV 06/12/20 04:16 200 mls/hr ONETIME ONE Administration Norepinephrine Bitartrate 4 mg 250 mls @ 7.5 mls/hr 06/12/20 04:00 06/12/20 04:08 / Dextrose/Water IV 2 mcg/min TITRATE NOELLE 7.5 mls/hr Administration Protocol 2 MCG/MIN Discontinued Medications Generic Name Dose Route Start Last Admin Trade Name Starla PRN Reason Stop Dose Admin Dextrose/Water Confirm 06/12/20 04:02 06/12/20 04:12 Dextrose 5% In Water Administered 06/12/20 04:03 Not Given Dose 250 mls @ as directed .ROUTE .STK-MED ONE Norepinephrine Bitartrate Confirm 06/12/20 03:59 06/12/20 04:12 Levophed Administered 06/12/20 04:00 Not Given Dose 4 mg .ROUTE .STK-MED ONE Piperacillin Sod/Tazobactam Sod Confirm 06/12/20 03:49 Zosyn Administered 06/12/20 03:50 Dose 3.375 gm .ROUTE .STK-MED ONE - Re-Assessments/Exams Free Text/Narrative Re-Assessment/Exam: 06/12/20 04:23 See lab Pt with NOY with elevated BUN/Cr compared to earlier today Also with Lactic acid 6.2 elevated WBC to 21k Pt given Zosyn 3.375 mg IV in ER Pt had Rocephin 1 gm IM earlier today Pt weighs 80 kg so needs 2400 cc IVF over 3 hours 2 IVF lines going Pt has had 1300 cc NS so far BP 84/51 now with HR 107 Levophed started at 2 sherry/min and increased to 4 sherry/min D/W Dr Brandon On-call hospitalist [facility] Will accept in transfer to ICU Transfer via EMS Departure - Departure Time of Disposition: 04:30 Disposition: DC/Tfer to Acute Hospital 02 Clinical Impression: Septicemia, NOY (acute kidney injury) Sepsis Qualifiers: Acute respiratory failure type: unspecified - Discharge Information Referrals: PCP,None [Primary Care Provider] - Sepsis Event Note (ED) - Evaluation Sepsis Screening Result: Possible Severe Sepsis Risk - Focused Exam Vital Signs: Vital Signs Temp Pulse Resp BP Pulse Ox 06/12/20 03:17 103 H 31 H 72/46 L 100 06/12/20 02:58 100.5 F 102 H 24 H 75/44 L 100 - My Orders Last 24 Hours: My Active Orders 06/12/20 02:47 CXR [Chest 1V Frontal] [CR] Stat Blood Culture x2 Reflex Set [OM.PC] Stat 06/12/20 03:00 Insert Guadarrama Catheter [Insert Urinary Catheter] [OM.PC] Q24H 06/12/20 03:04 EKG Documentation Completion [RC] ASDIRECTED 06/12/20 03:05 CULTURE BLOOD [BC] Stat 06/12/20 03:22 CULTURE BLOOD [BC] Stat 06/12/20 03:30 Sodium Chloride 0.9% [Normal Saline] 1,000 ml IV .BOLUS 06/12/20 03:43 Sodium Chloride 0.9% [Normal Saline] 1,000 ml IV .BOLUS 06/12/20 03:46 Urinary Catheter Assessment [RC] ASDIRECTED 06/12/20 03:47 Piperacillin/Tazobactam [Zosyn] 3.375 gm Sodium Chloride 0.9% [Normal Saline] 100 ml IV ONETIME 06/12/20 04:00 Norepinephrine [Levophed] 4 mg Dextrose 5% in Water 246 ml IV TITRATE - Assessment/Plan Last 24 Hours: My Active Orders 06/12/20 02:47 CXR [Chest 1V Frontal] [CR] Stat Blood Culture x2 Reflex Set [OM.PC] Stat 06/12/20 03:00 Insert [place] Catheter [Insert Urinary Catheter] [OM.PC] Q24H 06/12/20 03:04 EKG Documentation Completion [RC] ASDIRECTED 06/12/20 03:05 CULTURE BLOOD [BC] Stat 06/12/20 03:22 CULTURE BLOOD [BC] Stat 06/12/20 03:30 Sodium Chloride 0.9% [Normal Saline] 1,000 ml IV .BOLUS 06/12/20 03:43 Sodium Chloride 0.9% [Normal Saline] 1,000 ml IV .BOLUS 06/12/20 03:46 Urinary Catheter Assessment [RC] ASDIRECTED 06/12/20 03:47 Piperacillin/Tazobactam [Zosyn] 3.375 gm Sodium Chloride 0.9% [Normal Saline] 100 ml IV ONETIME 06/12/20 04:00 Norepinephrine [Levophed] 4 mg Dextrose 5% in Water 246 ml IV TITRATE
== END 2020-06-12 04:50 ==
LOC: LL.ED 02:30
DX: A41.9 Sepsis, unspecified organism (principal); R65.20 Severe sepsis without septic shock; N17.9 Acute kidney failure, unspecified; I11.0 Hypertensive heart disease with heart failure; I50.9 Heart failure, unspecified; J44.9 Chronic obstructive pulmonary disease, unspecified; G30.9 Alzheimer's disease, unspecified; F02.80 Dementia in other diseases classified elsewhere, unspecified severity, without behavioral disturbance, psychotic disturbance, mood disturbance, and anxiety; F32.9 Major depressive disorder, single episode, unspecified; M19.90 Unspecified osteoarthritis, unspecified site; Z79.82 Long term (current) use of aspirin; Z79.899 Other long term (current) drug therapy; Z88.8 Allergy status to other drugs, medicaments and biological substances; Z88.5 Allergy status to narcotic agent
CPT/HCPCS: 36415; 71045; 80053; 81001; 83605; 85025; 87040; 93005; 96365; 96367; 99284; 99285-25; J2543; J7030; J7060